=== PATIENT | male | born 1980 | race Caucasian/White ===

== ENCOUNTER → 2016-10-25 | Outpatient (CLI) | payer OTHER ==
[2016-10-25 09:27] LABS: BASO % 0.9 %; BASO ABS # 0.06 K/uL (0-0.2); COMPLETE YES; EOS % 5.4 %; HEMATOCRIT 48.6 % (42-52); IG% 0.1 %; LYMPH % 40.3 %; LYMPH ABS # 2.76 K/uL (1.2-3.4); MEAN CELL VOLUME 92.6 fL (80-100); MEAN CORPUSCULAR HGB CONC 34.6 g/dl (32-36); MEAN PLATELET VOLUME 12.1 fL (7.4-10.4); MONO % 12.8 %; NEUT % 40.5 %; PLATELET COUNT 233 K/uL (130-400); RED BLOOD COUNT 5.25 M/uL (4.7-6.1); WHITE BLOOD COUNT 6.85 K/uL (4.8-10.8)
[2016-10-25 09:37] LABS: ESTIMATED AVERAGE GLUCOSE 120 mg/dl; HA1C FLAG Normal (Normal)
[2016-10-25 09:59] LABS: CALCIUM 9.4 mg/dl (8.5-10.1)
[2016-10-25 10:01] LABS: ALT/SGPT 28 U/L (12-78); BLOOD UREA NITROGEN 13 mg/dl (7-18); BUN/CREATININE RATIO 11.2 (10-20); CARBON DIOXIDE 31 mmol/L (21-32); CHLORIDE 105 mmol/L (98-107); CHOLESTEROL 187 mg/dl (0-200); GLUCOSE 90 mg/dl (70-99); POTASSIUM 4.4 mmol/L (3.5-5.1); SODIUM 141 mmol/L (136-145); TRIGLYCERIDES 106 mg/dl (0-150); VERY LOW DENSITY LIPOPROT CALC 21 mg/dl
[2016-10-25 10:12] LABS: ALB/GLOB RATIO 1.3 (0.9-2); ALKALINE PHOSPHATASE 47 U/L (45-117); AST/SGOT 22 U/L (15-37); CHOLESTEROL/HDL RATIO 3.3; HDL CHOLESTEROL 57 mg/dl; LDL CHOLESTEROL CALCULATED 109 mg/dl
== END | disposition home or self-care (01) ==
LOC: C.LAB 07:47
PROVIDERS: ATTEND Physician Assistant
DX: Z51.81 Encounter for therapeutic drug level monitoring (principal); Z79.899 Other long term (current) drug therapy

== ENCOUNTER 2017-06-21 15:35 | Inpatient (IN) | payer OTHER ==
[~2017-06-21] VITALS: Ht 175.3 cm; Wt 88.0 kg
[2017-06-21] MEDS ORDERED: CITA40TA12 PO (15:59)
[2017-06-21] MEDS ORDERED: CLON0.5T3 PO (15:59)
[2017-06-21] MEDS ORDERED: XYLOCAINE 1%/SOD BICARB 20 ML VIAL INFIL ONE (16:00)
--- NOTE | 2017-06-21 16:45 | DIAGNOSTIC IMAGING REPORT ---
R KNEE 3 VIEWS, L KNEE 3 VIEWS CLINICAL HISTORY: Bilateral knee injuries with pain. COMPARISON STUDY: None. FINDINGS: Subtle nondisplaced lateral tibial plateau fracture within the right knee. Prepatellar soft tissue laceration. Small bilateral joint effusions. Anterior soft tissue gas within the left knee is also likely due to a soft tissue laceration. Old, healed left proximal fibular fracture. No acute fracture or dislocation within the left knee. There is a 1 cm bony fragment within the lateral suprapatellar soft tissues of the right knee with the donor site seen at the lateral femoral condyle. There is an associated nondisplaced fracture within the lateral aspect of the lateral femoral condyle of the right knee. This likely results in the bony fragment. IMPRESSION: 1. Nondisplaced fractures within the lateral femoral condyle and lateral tibial plateau of the right knee. 2. No acute fracture or dislocation within the left knee. 3. Small bilateral joint effusions and anterior soft tissue lacerations. Electronically signed by: Louis Alcazar M.D. 06/21/2017 4:44 PM Dictated Date/Time: 06/21/2017 4:39 PM
[2017-06-21] MEDS ORDERED: LIDOCAINE/EPINEPHRINE 1% 20 ML VIAL ONE (16:46)
[2017-06-21] MEDS ORDERED: SODIUM CHLORIDE 0.9% IRRIG 1,000 ML PLCT IR ONE (17:00)
[2017-06-21] MEDS ORDERED: SODIUM CHLORIDE 0.9% TOP ONE (17:30)
[2017-06-21] MEDS ORDERED: METHYLENE BLUE 0.5% TOP ONE (17:30)
[2017-06-21] MEDS ORDERED: CEFAZOLIN IV 1,000 MG in DEXTROSE 5% 50ML 50 ML IV ONE (18:00)
[2017-06-21] MEDS ORDERED: ONDANSETRON INJ 2 MG/ML 2 ML VIAL IV STA (18:08)
[2017-06-21] MEDS ORDERED: MoRPHine SULFATE 4 MG/ML 1 ML CARP\\VIAL IV STA (18:08)
[2017-06-21] MEDS ORDERED: BACITRACIN 50000 UNIT VIAL ONE ×2 (18:55→19:17)
[2017-06-21] MEDS ORDERED: POVIDONE-IODINE OP SOLN 30 ML BTL ONE (18:55)
--- NOTE | 2017-06-21 18:57 | History and Physical ---
History & Physical Date of Service Jun 21, 2017. 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 He was trying to extricate a 4 yip. This happened about noon. He last ate 6 hours ago but did have a few bites of food on his way to the hospital. It took him an additional 3 hours to extricate the equipment. When he fell in the [place] which was dry he hit his knees on something when she is not sure of. He injured both knees but was able to continue to ambulate and work. He then came to the emergency room. He has a prior history of an anterior cruciate ligament injury in his right knee at age 12 which may have healed but he has not had surgery he denies numbness and tingling. He complains of pain right knee worse than left knee. Tetanus is been within the last few years. He has had 4 alcoholic drinks today. He also has a police monitor on his left ankle. Past medical history significant for anxiety. Past surgical history he had left circumflex shoulder surgery. Medications Celexa and Klonopin Allergies none review of systems he denies bleeding blood clots infections metal sensitivity heart lung liver kidney disease heart attack stroke or diabetes Examination chest clear to auscultation bilaterally heart is regular in rate and rhythm Abdomen is soft and nontender with active bowel sounds. The patient denies of pain in the neck or back chest or arms or pelvis. Examination the left lower extremity reveals full extension and full flexion he has a trace effusion there are 2 abrasions over the anterior aspect of the knee and a 2 cm complex laceration which is previously been closed overlying the inferior portion of the patella. There is no pain with logrolling his cruciates and collaterals are intact there is some minor tenderness around the abrasions otherwise unremarkable. He has 5 out of 5 knee flexion and extension strength and 5 out of 5 ankle and toe plantarflexion and dorsiflexion strength. Sensation is intact in both lower extremities and he has 1 posterior cells pedis and posterior tibial pulses. There is a police locater device on his left ankle. Examination of the right knee reveals range of motion 0-30. He is able to do a straight leg raise. Logrolling is negative. There is some mild tenderness in the distal 5 but significant tenderness around the lateral side of the knee and the medial femur. The tibia ankle and foot are nontender. He does not have significant effusion. There is a curvilinear transverse 6 cm laceration just above the patella oozing blood with exposed muscle and the laceration appears to be significantly deep. Lockman appears slightly lax but cannot tell due to relaxation. Cannot assess posterior drawer. The patella appears to be nontender and the patella appears of normal height and there is no pathological laxity to LCL or MCL stressing. Radiographs of the left knee are negative except for some subcutaneous air not in the joint. Radiographs of the right knee show a nondisplaced lateral epicondylar fracture nondisplaced lateral tibial plateau fracture possibly an avulsion of the lateral tibial spine a bone fragment in the lateral soft tissues and soft tissue disruption in the supra patellar region. Impression is left leg laceration right knee laceration with minor fractures of the tibia and femur avulsion fracture possible open joint possible quadriceps tendon laceration. Findings discussed with the patient. I recommend exploration irrigation debridement repair of the quadriceps tendon is lacerated washing out of the knee joint. I don't think the fractures are of any significance. He walked around on them for 3 hours and was up walking around to the bathroom upon my arrival to the emergency room. An informed consent is obtained. He is to be nothing by mouth. His tetanus is up-to-date. Straight Ancef and gentamicin. The plan will be for operative intervention. I do not think that his fractures require any operative fixation other than nonweightbearing. I advised advised him that there are things that could be injured in his knee that we are not be able to take care of at this time for example complete PCL tear which I cannot diagnose at this time. I do not think that he needs an MRI nor CT scan at this point. A compressive dressings applied with a Betadine dressing. CBC and PRP ordered.
[2017-06-21 19:00] VITALS: O2SAT 98
[2017-06-21] MEDS ORDERED: FENTANYL CITRATE INJ 50 MCG/1 ML 2 ML VIAL ONE ×2 (19:25→20:38)
[2017-06-21] MEDS ORDERED: MIDAZOLAM HCL 1 MG/ML 2ML VIAL ONE (19:25)
[2017-06-21 19:26] LABS: BASO % 0.1 %; BASO ABS # 0.01 K/uL (0-0.2); COMPLETE YES; HEMATOCRIT 38.7 % (42-52); IG% 0.3 %; LYMPH % 10.4 %; LYMPH ABS # 1.55 K/uL (1.2-3.4); MEAN CELL VOLUME 89.6 fL (80-100); MEAN CORPUSCULAR HEMOGLOBIN 31.5 pg (25-34); MEAN CORPUSCULAR HGB CONC 35.1 g/dl (32-36); MEAN PLATELET VOLUME 11.5 fL (7.4-10.4); MONO % 9.2 %; PLATELET COUNT 223 K/uL (130-400); RED BLOOD COUNT 4.32 M/uL (4.7-6.1); WHITE BLOOD COUNT 14.97 K/uL (4.8-10.8)
[2017-06-21] MEDS ORDERED: GENTAMICIN INJ 80 MG in DEXTROSE 5% 100ML 100 ML IV SCH (19:30)
[2017-06-21 19:37] LABS: BLOOD UREA NITROGEN 9 mg/dl (7-18); BUN/CREATININE RATIO 7.7 (10-20); C-REACTIVE PROTEIN < 0.29 mg/dl (0-0.29); CALCIUM 8.1 mg/dl (8.5-10.1); CARBON DIOXIDE 25 mmol/L (21-32); CHLORIDE 98 mmol/L (98-107); CREATININE 1.17 mg/dl (0.60-1.40); GLUCOSE 104 mg/dl (70-99); POTASSIUM 3.7 mmol/L (3.5-5.1); SODIUM 131 mmol/L (136-145)
[2017-06-21] MEDS ORDERED: SUCCINYLCHOLINE CHLORIDE 20 MG/ML 10 ML VIAL IV ONE (19:49)
[2017-06-21] MEDS ORDERED: PROPOFOL IV EMULSION 10 MG/ML 20 ML VIAL IV ONE (19:49)
[2017-06-21] MEDS ORDERED: CEFAZOLIN SOD IV ONE (19:56)
[2017-06-21] MEDS ORDERED: CEFAZOLIN SOD 1 GM VIAL ONE (20:38)
[2017-06-21] MEDS ORDERED: DEXAMETHASONE SOD INJ 4 MG/ML VIAL ONE (20:41)
[2017-06-21] MEDS ORDERED: ONDANSETRON INJ 2 MG/ML 2 ML VIAL ONE (20:41)
[2017-06-21] MEDS ORDERED: NEOSTIGMINE METHYLSULFATE 5 MG/5 ML SYR ONE (21:03)
[2017-06-21] MEDS ORDERED: GLYCOPYRROLATE INJ 0.2 MG/ML VIAL ONE (21:03)
--- NOTE | 2017-06-21 21:10 | [facility] Post Operative Brief Note ---
Immediate Operative Summary Operative Date Jun 21, 2017. Pre-Operative Diagnosis tramatic right knee wound Post-Operative Diagnosis Right lateral Condyl Fracture, Open knee Joint, Disruption of Quadriceps Tendon Procedure(s) Performed Irrigation and Debridement, Exploration of Right Knee, Repair of Extensor Mechanism Surgeon Dr. Diallo Musa Railroad Car Checker Surgeon(s) None Estimated Blood Loss 20 ml Findings impacted fracture lateral condyle, open knee joint, longitudinal split in quad tendon Specimens None Drains 2 Anesthesia General Complication(s) None Disposition Recovery Room / PACU
[2017-06-21] MEDS ORDERED: METOCLOPRAMIDE HCL INJ 5 MG/ML 2 ML VIAL IV PRN (21:15)
[2017-06-21] MEDS ORDERED: MoRPHine SULFATE 2 MG/ML CARP IV PRN (21:15)
[2017-06-21] MEDS ORDERED: ONDANSETRON INJ 2 MG/ML 2 ML VIAL IV PRN ×2 (21:15→21:45)
[2017-06-21] MEDS ORDERED: ALUMINUM/MAGNESIUM/SIMETH (MAALOX MAX) 30 ML UDC PO PRN (21:15)
[2017-06-21] MEDS ORDERED: HYDROmorphone INJ 1 MG/ML SYR IV PRN (21:45)
[2017-06-21] MEDS ORDERED: EpHEDrine SULFATE INJ 50 MG/ML AMP IV PRN (21:45)
[2017-06-21] MEDS ORDERED: ATROPINE SULFATE 0.1 MG/ML 5ML SYR IV PRN (21:45)
[2017-06-21] MEDS ORDERED: FLUMAZENIL 0.1 MG/1 ML 10 ML VIAL IV PRN (21:45)
[2017-06-21] MEDS ORDERED: LABETALOL HCL IV 5 MG/ML 20ML IV PRN (21:45)
[2017-06-21] MEDS ORDERED: NALOXONE HCL 0.4 MG/1 ML VIAL/CARP IV PRN (21:45)
[2017-06-21] MEDS ORDERED: PROMETHAZINE HCL INJ 12.5 MG in SODIUM CHLORIDE 0.9% 50ML 50 ML IV PRN (21:45)
--- NOTE | 2017-06-21 21:50 | Anesthesiology Progress Note ---
Anesthesia Post Op Note Date & Time Jun 21, 2017 at 21:50 Vital Signs Pain Intensity: 6 Vital Signs Past 12 Hours Date Time Temp Pulse Resp B/P (MAP) Pulse Ox O2 Delivery O2 Flow Rate FiO2 06/21/17 21:35 65 16 134/77 100 Nasal Cannula 2 06/21/17 21:25 36.8 79 16 162/88 95 Nasal Cannula 2 06/21/17 19:00 75 16 103/76 98 06/21/17 17:47 62 18 113/62 98 Room Air 06/21/17 15:36 36.4 65 18 110/80 98 Room Air Notes Mental Status: alert / awake / arousable, participated in evaluation Pt Amnestic to Procedure: Yes Nausea / Vomiting: adequately controlled Pain: adequately controlled Airway Patency, RR, SpO2: stable & adequate BP & HR: stable & adequate Hydration State: stable & adequate Anesthetic Complications: no major complications apparent
[2017-06-21] MEDS ORDERED: HYDROmorphone INJ 1 MG/ML SYR ONE (21:53)
[2017-06-21 22:40] VITALS: BP 143/87; PULSE 64; TEMP 37; O2SAT 94
[2017-06-21 22:45] VITALS: Ht 175.3 cm; Wt 88.0 kg
--- NOTE | 2017-06-21 23:05 | OPERATIVE REPORT ---
DATE OF OPERATION: 06/21/2017 PREOPERATIVE DIAGNOSIS: Right knee wound, suspected open joint, nondisplaced tibial plateau fracture, nondisplaced lateral femoral condyle fracture. POSTOPERATIVE DIAGNOSIS: Same plus open knee joint with longitudinal disruption of quadriceps tendon. PROCEDURE: Exploration, irrigation and debridement, repair of extensor mechanism. SURGEON: Diallo Musa MD. CONCRETE TECHNICIAN: None. ANESTHESIA: General. 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 He apparently fell out of the backhoe and injured both of his knees by striking them against the ground. He was seen and evaluated in the Emergency Room, he had several fracture fragments in the soft tissues. The location and size of the wound suggested the possibility for an open injury. He did have a nondisplaced lateral condyle fracture and a nondisplaced lateral tibial plateau fracture, neither of which appeared to be in need of surgical treatment. PROCEDURE IN DETAIL: His tetanus is up to date. He received a dose of antibiotics in the ER. Informed consent was obtained. A preoperative surgical timeout was performed. A preop dose of IV antibiotics was given. He received both Ancef and gentamicin due to the nature of his injury. A preoperative surgical timeout was performed. The patient was identified as Neeraj March. He identified the operative site as the right knee which I marked with my initials. He was positioned supine on the OR table with a tourniquet on the right thigh. After the anesthetic was administered, examination under anesthesia was performed. He had trace LCL laxity with firm endpoint, trace ACL laxity with firm endpoint and perhaps a trace bit of PCL laxity. MCL was intact. He had a 6 cm L-shaped laceration over the superior lateral aspect of the knee, just above the patella. His range of motion passively was easily to about 120 degrees. The limb was prepped and draped in usual sterile fashion. DVT prophylaxis will be done with early patient mobility, aspirin and mechanical devices. The limb was exsanguinated with gravity and tourniquet inflated to 250 mmHg. The incision was opened superiorly in the midline and inferiorly along its lateral aspect. Electrocautery was utilized down to subcutaneous tissues. Immediately, it became evident that the wound went down through the quadriceps tendon and into the knee joint. There was a longitudinal split in the lateral portion of the quadriceps tendon going up into the vastus lateralis. about the lateral quarter to fifth of the tendon with vast majority intact medially. There were some debris and bone fragments that were present, these were removed as encountered throughout the procedure. I made an arthrotomy going along the lateral border of the patella to about its midpoint. I then was able to identify some palpable fracture fragments in the lateral condyle area. These fracture fragments were removed, multiple small pieces of bone and cartilage were removed. There was a defect on the superior lateral aspect of the lateral femoral condyle, some avulsion, a good bit impaction, all of fragments were small pieces that were not amenable to fixation and were not structurally important. This was 2 cm long x 1.5 cm wide. It probably involved the most lateral portion of the patellofemoral articulation. I carefully palpated and removed any loose bone fragments as possible. I did not encounter any significant debris within the knee. I palpated the patella which felt normal as did the trochlea, medial condyle, and medial and lateral gutters. Three liters of pulse lavage was done inside the knee and the soft tissues. The bursal area was largely somewhat degloved from the underlying tissue. There was a lot of hemorrhagic bursitis that was excised. I then irrigated with 500 mL of Betadine lavage within the knee joint and wound, allowed it to soak for several minutes and then rinsed it out. Two drains were inserted, one exiting out the lateral gutter within the knee joint, suprapatellar pouch, and medial and lateral gutter, the other one was placed superficially exiting out medially and was placed into the bursal area. The split in the quadriceps tendon was repaired with #2 FiberWire in an interrupted fashion. I then oversewed this with a running #1 Vicryl. The part of the split that went up into the quadriceps muscle vastus lateralis was repaired with interrupted #1 Vicryl. Skin for my surgical incisions was closed with 2-0 Vicryl and tyson, and for the traumatic laceration, was closed with approximately four 2-0 nylon sutures. The tourniquet was let down prior to wound closure and there was no significant bleeding, tourniquet time was approximately 45 minutes. Xeroform, 4 x 4's, ABD, an Valentino wrap with knee immobilizer were applied. The patient was then awakened from anesthesia and taken to the recovery room in stable condition. There were no specimens or complications. Counts were correct at the end of the case. Blood loss was perhaps 10 mL. No one was available to speak to at the conclusion of the operation. The plan will be for administration of intravenous antibiotics for a period of 24-48 hours. We will use Ancef and gentamicin due to the nature of this injury. Additionally, he will be made nonweightbearing because of his tibial plateau fracture and for now we will hold on range of motion while the drains are in place. Drains will likely be pulled in 24-36 hours and will commence range of motion but continue nonweightbearing. I attest to the content of the Intraoperative Record and any orders documented therein. Any exceptions are noted below. MTDD
[2017-06-21 23:10] VITALS: BP 120/71; PULSE 64; TEMP 37.1; O2SAT 94
[2017-06-21] MEDS ORDERED: MoRPHine SULFATE 10 MG/ML CARP/VIAL IV PRN (23:15)
[2017-06-21] MEDS ORDERED: GENTAMICIN INJ 500 MG in DEXTROSE 5% 100ML 100 ML IV SCH (23:15)
[2017-06-21] MEDS ORDERED: GENTAMICIN CONSULT ACTIVE PRN (23:30)
[2017-06-21 23:40] VITALS: BP 131/69; PULSE 63; TEMP 37.1; O2SAT 92
[2017-06-21] MEDS ORDERED: INFLUENZA VIRUS QUAD VACCINE 0.5 ML SYR IM. ONE (23:45)
[2017-06-21] MEDS ORDERED: INFLUENZA ADMINISTRATION CHARGE ONE (23:45)
[2017-06-21] MEDS: D5W AND 1/2NSS + 20MEQ KCL 1,000 ML IV SCH (23:54)
[2017-06-21] MEDS: OXYCODONE HCL IR 5 MG TAB (IMMEDIATE RELEASE) PO PRN (23:55)
[2017-06-21] MEDS: ACETAMINOPHEN 500 MG TAB PO SCH (23:55)
[2017-06-21] MEDS: KETOROLAC TROMETHAMINE 30 MG/ML VIAL IV PRN (23:56)
[2017-06-22] VITALS (7 sets, daily range): BP systolic 101–119; BP diastolic 57–72; PULSE 51–71; TEMP 36.8–37.4; O2SAT 93–97
[2017-06-22] MEDS: OXYCODONE HCL IR 5 MG TAB (IMMEDIATE RELEASE) PO PRN ×3 (04:07→23:55)
[2017-06-22] MEDS: CEFAZOLIN IV 2,000 MG in SYRINGE 0 ML IV SCH ×3 (04:07→20:30)
--- NOTE | 2017-06-22 05:47 | Pharmacy Progress Note ---
Pharmacy Abx Initial Consult Date of Service Jun 22, 2017. Pharmacy Dosing Scope Date of Consult: 06/21/17 Consultation requested by: Dr. Musa Pharmacy is consulted to continue Gentamicin IV dosing therapy, order appropriate labs and adjust drug dose/frequency. Subjective The patient is a 36 year old male admitted on Jun 21, 2017 at 21:26 with a knee injury from a fall in a osage bottom while working outdoors. Dr Musa took him to OR for fixation with possible ligament involvement and open fracture possibilities. He consulted us to continue Gentamicin post surgery. Objective Height (Feet): 5 Height (Inches): 9.00 Weight (Kilograms): 88.000 Vital Signs (Past 12Hrs) Vital Signs Past 12 Hours Date Time Temp Pulse Resp B/P (MAP) Pulse Ox O2 Delivery O2 Flow Rate FiO2 06/22/17 03:26 36.8 61 16 111/67 (82) 97 Room Air 06/22/17 01:40 37.0 64 16 117/68 (84) 93 Room Air 06/22/17 00:40 37.2 66 16 118/69 (85) 93 Room Air 06/22/17 00:00 Room Air 06/21/17 23:40 37.1 63 16 131/69 (89) 92 Room Air 06/21/17 23:10 37.1 64 18 120/71 (87) 94 Room Air 06/21/17 22:45 Nasal Cannula 06/21/17 22:40 37.0 64 16 143/87 (105) 94 Room Air Nasal Cannula 06/21/17 22:40 Nasal Cannula 06/21/17 22:30 62 16 129/81 100 Nasal Cannula 2 06/21/17 22:15 62 16 134/75 100 Nasal Cannula 2 06/21/17 22:05 36.9 61 15 135/79 100 Nasal Cannula 2 06/21/17 21:55 64 15 144/76 100 Nasal Cannula 2 06/21/17 21:45 66 16 140/81 100 Nasal Cannula 2 06/21/17 21:35 65 16 134/77 100 Nasal Cannula 2 06/21/17 21:25 36.8 79 16 162/88 95 Nasal Cannula 2 06/21/17 19:00 75 16 103/76 98 06/21/17 17:47 62 18 113/62 98 Room Air Lab Results (24Hrs) Laboratory Tests (24 Hours) Test 06/21/17 18:43 C-Reactive Protein < 0.29 mg/dl (0-0.29) White Blood Count 14.97 K/uL (4.8-10.8) H Red Blood Count 4.32 M/uL (4.7-6.1) L Hemoglobin 13.6 g/dL (14.0-18.0) L Hematocrit 38.7 % (42-52) L Mean Corpuscular Volume 89.6 fL (80-100) Mean Corpuscular Hemoglobin 31.5 pg (25-34) Mean Corpuscular Hemoglobin Concent 35.1 g/dl (32-36) Platelet Count 223 K/uL (130-400) Mean Platelet Volume 11.5 fL (7.4-10.4) H Neutrophils (%) (Auto) 80.0 % Lymphocytes (%) (Auto) 10.4 % Monocytes (%) (Auto) 9.2 % Eosinophils (%) (Auto) 0.0 % Basophils (%) (Auto) 0.1 % Neutrophils # (Auto) 11.99 K/uL (1.4-6.5) H Lymphocytes # (Auto) 1.55 K/uL (1.2-3.4) Monocytes # (Auto) 1.38 K/uL (0.11-0.59) H Eosinophils # (Auto) 0.00 K/uL (0-0.5) Basophils # (Auto) 0.01 K/uL (0-0.2) Assessment & Plan Assessment 36 year old male with knee injury requiring surgery and post op antibiotics consisting of Ancef and Gentamicin Plan Gentamicin for treatment of open fracture of knee Gentamicin * Patient meets criteria for extended-interval aminoglycoside dosing per the [place] nomogram * Dose: 500mg x 1 then 540mg (7 mg/kg) IV every 24 hours due to preop dosage 4&1/2 hours prior, I chose 6.5mg/kg initial dose. * Dosage based on adjusted body weight for patients weighing > 120% of ideal body weight. (77kg) * Random level ordered for 8 hours after the start of the infusion to ensure dosing interval is appropriate. 0800 on 06/22/17 * Will extrapolate random level to the extended-interval aminoglycoside dosing nomogram to confirm q24h dosing upon assessment of level. Pharmacy will continue to follow and will adjust dose/frequency as necessary. Thank you.
[2017-06-22] MEDS: KETOROLAC TROMETHAMINE 30 MG/ML VIAL IV PRN ×2 (06:05→14:34)
[2017-06-22] MEDS: ACETAMINOPHEN 500 MG TAB PO SCH ×3 (06:05→22:45)
[2017-06-22 08:58] LABS: CREATININE 1.04 mg/dl (0.60-1.40)
[2017-06-22] MEDS: CITALOPRAM 40 MG TAB PO SCH (09:05)
[2017-06-22] MEDS: CLONAZEPAM 0.5 MG TAB PO SCH ×3 (09:05→20:30)
[2017-06-22] MEDS: DOCUSATE SODIUM 100 MG CAP PO SCH ×2 (09:05→20:30)
[2017-06-22] MEDS: D5W AND 1/2NSS + 20MEQ KCL 1,000 ML IV SCH ×2 (09:06→19:05)
[2017-06-22] MEDS: ASPIRIN 325 MG ECTAB PO SCH ×2 (09:06→20:30)
--- NOTE | 2017-06-22 09:27 | Pharmacy Progress Note ---
Pharmacy Abx Dose Short Note Date of Service Jun 22, 2017. Assessment & Plan Assessment 36 year old male receiving Gentamicin 540mg (7mg/kg) for treatment of open knee wound Day # 2 of antimicrobial therapy. Plan Pt is receiving Gentamicin 540mg Q24H. Renal fxn looks good. Scr=1.04, [id number]/min. Gentamicin lvl of 2.50 falls under the therapeutic window for Q24H dosing. Lvl was drawn ~8 hours after start of infusion. Will continue current dose and regimen for now. No subsequent lvl ordered as of now. Pharmacy will order random lvl in a few days. Pharmacy will continue to follow and will adjust dose/frequency as necessary. Thank you.
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
--- NOTE | 2017-06-22 14:55 | Discharge Instructions ---
Discharge Instructions Date of Service Jun 22, 2017. Admission Reason for Admission: Open Wound Knee/Leg With Tendon Involvment Discharge Discharge Diagnosis / Problem: open fracture right knee, quad tendon tear Discharge Goals Goal(s): Decrease discomfort, Improve function, Increase independence Activity Recommendations Activity Limitations: per Instructions/Follow-up section Weightbearing Status: Right non-weightbearing (use crutches to assist with ambulation) . Instructions / Follow-Up Instructions / Follow-Up DIET: * Resume previous diet. MEDICATIONS: * Please take your prescriptions as instructed at your pre-op appointment and/ or see medication discharge instructions listed above. * Take pain medication as prescribed. * Take antibiotics as prescribed, take until gone. * If concerns develop, call your physician's office at . SPECIAL CARE INSTRUCTIONS: * Ice to right knee as needed for pain/swelling. * Keep dressing clean, dry, intact. Keep dressings on until your follow up visit * Use knee immobilizer when out of bed/with walking. Use crutches to assist with ambulation at all times. * You may remove knee immobilizer to do gentle range of motion to right knee, quad exercises. Work on straightening and lifting your right leg. * DO NOT PLACE ANY WEIGHT ON YOUR RIGHT LEG. USE CRUTCHES TO ASSIST WITH AMBULATION. * Your surgical extremity may be discolored due to prepping agents used on the skin. A bluish-green tint is a normal variant and should not cause alarm. Call your doctor at [phone] if: * Temperature above 101 degrees * Pain not relieved by pain medicine ordered * There is increased drainage or redness from any incision * You have any unanswered questions, problems or concerns. FOLLOW UP VISIT: * If not already scheduled, please call the office at to schedule a follow-up appointment. * You have a follow up scheduled on 06/27/17 at 3:15 p.m. at [facility]. Please call with any questions or concerns. Current Hospital Diet Patient's current hospital diet: Regular Diet Discharge Diet Recommended Diet: Regular Diet Procedures Procedures Performed: Irrigation and Debridement, Exploration of Right Knee, Repair of Extensor Mechanism Pending Studies Studies pending at discharge: no Medical Emergencies . Who to Call and When: Medical Emergencies: If at any time you feel your situation is an emergency, please call 911 immediately. . Non-Emergent Contact Non-Emergency issues call your: Surgeon Call Non-Emergent contact if: temperature is above 101, your pain is not controlled, your pain is worsening, wound has increased drainage, wound has increased redness, wound has increased pain, you have any medication questions . "Provider Documentation" section prepared by Kymberly Farr. . VTE Core Measure Inpt VTE Proph given/why not?: Other Anticoagulation (Aspirin 325mg po BID x 28 days) [place] Drug Monitoring Program Search Results: patient reviewed within database, no issues identified
[2017-06-22] MEDS ORDERED: OXYC-57 PO (14:57)
[2017-06-22] MEDS ORDERED: AMOX875T PO (14:57)
[2017-06-22] MEDS ORDERED: ASPI325T45 PO (14:58)
--- NOTE | 2017-06-22 15:08 | PROGRESS NOTE ---
DATE: 06/22/2017 DATE: 06/22/2017 SUBJECTIVE: Pain well controlled. No problems reported. Afebrile, vital signs stable. Drainage is 100 mL the past 2 shifts. Distal neurovascular function intact, 5/5 ankle and toe plantar flexion and dorsiflexion strength, normal sensation and 1+ posterior tib pulse. IMPRESSION: Nondisplaced lateral tibial plateau fracture, impacted comminuted fracture of the lateral femoral condyle, open knee joint with longitudinal disruption of the quadriceps tendon right knee. PLAN: Findings were discussed. Will continue the drains, nonweightbearing, no range of motion. Continue antibiotics. I will follow up with him tomorrow. If drainage is diminished we will pull the drains, initiate range of motion and continue nonweightbearing. He is educated about the surgical findings. We reviewed the plan for his future care. Aspirin for DVT prophylaxis.
[2017-06-22] MEDS ORDERED: SENNA 8.6 MG TAB PO SCH (21:00)
[2017-06-22] MEDS ORDERED: GENTAMICIN IV SCH (23:00)
[2017-06-22] MEDS ORDERED: DEXTROSE 5% IV SCH (23:00)
[2017-06-23] MEDS: CEFAZOLIN IV 2,000 MG in SYRINGE 0 ML IV SCH ×2 (03:31→12:40)
[2017-06-23] MEDS: KETOROLAC TROMETHAMINE 30 MG/ML VIAL IV PRN (03:35)
[2017-06-23] MEDS: D5W AND 1/2NSS + 20MEQ KCL 1,000 ML IV SCH (05:31)
[2017-06-23] MEDS: ACETAMINOPHEN 500 MG TAB PO SCH (05:31)
[2017-06-23 06:42] LABS: CREATININE 1.06 mg/dl (0.60-1.40)
[2017-06-23 08:05] VITALS: BP 93/60; PULSE 57; TEMP 36.5; O2SAT 97
[2017-06-23] MEDS: OXYCODONE HCL IR 5 MG TAB (IMMEDIATE RELEASE) PO PRN ×2 (08:24→12:50)
[2017-06-23] MEDS: CITALOPRAM 40 MG TAB PO SCH (08:30)
[2017-06-23] MEDS: DOCUSATE SODIUM 100 MG CAP PO SCH (08:30)
[2017-06-23] MEDS: ASPIRIN 325 MG ECTAB PO SCH (08:30)
[2017-06-23] MEDS: CLONAZEPAM 0.5 MG TAB PO SCH ×2 (08:30→13:52)
--- NOTE | 2017-06-23 11:41 | PROGRESS NOTE ---
DATE: 06/23/2017 SUBJECTIVE: He is resting comfortably in bed. No problems are noted. OBJECTIVE: He is afebrile. His vital signs are stable. His drainage output was only 25 mL. He has intact distal neurovascular function, normal sensation. 5/5 ankle and toe plantar flexion and dorsiflexion strength. He can do a straight leg raise. 1+ posterior tib pulse. There is no significant fluid within the bursa. He may have a small knee joint effusion. There is no significant erythema. The wounds are healing well. Drains were pulled and a new dressing is applied. IMPRESSION: Traumatic open wound of the right knee status post fall resulting in a nondisplaced tibial plateau fracture, impacted fracture of the lateral femoral condyle and a longitudinal tear of the quadriceps tendon and an open joint of the right knee. PLAN: He is suitable for discharge. He will follow up with me next week. I reviewed with him his discharge instructions. He will be discharged on an oral antibiotic, pain medication and aspirin. He can do a quad sets, leg raises, knee bending, ankle pumps and is to be nonweightbearing with crutches.
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
[2017-06-23 13:35] VITALS: BP 93/60; PULSE 57; TEMP 36.5; O2SAT 97
== END 2017-06-23 13:55 | disposition home or self-care (01) | DRG 500 ==
LOC: C.EDB 15:36 → C.MSW 21:26 → ENRESERV 21:52
PROVIDERS: ADMIT Physical Medicine & Rehabilitation Sports Medicine; ATTEND Physical Medicine & Rehabilitation Sports Medicine
PROC: 0JCN0ZZ Extirpation of Matter from Right Lower Leg Subcutaneous Tissue and Fascia, Open Approach (ICD-10-PCS; principal; 2017-06-21 18:34)
PROC: 0MBN0ZZ Excision of Right Knee Bursa and Ligament, Open Approach (ICD-10-PCS; principal; 2017-06-21 18:34)
PROC: 0LQQ0ZZ Repair Right Knee Tendon, Open Approach (ICD-10-PCS; principal; 2017-06-21 18:34)
PROC: 3E1U38Z Irrigation of Joints using Irrigating Substance, Percutaneous Approach (ICD-10-PCS; principal; 2017-06-21 18:34)
PROC: 0HQLXZZ Repair Left Lower Leg Skin, External Approach (ICD-10-PCS; 2017-06-21 18:34)
PROC: 0HQ1XZZ Repair Face Skin, External Approach (ICD-10-PCS; 2017-06-21 18:34)
DX: S72.424 Nondisplaced fracture of lateral condyle of right femur (principal); S82.144 Nondisplaced bicondylar fracture of right tibia; M71.561 Other bursitis, not elsewhere classified, right knee; S81.012A Laceration without foreign body, left knee, initial encounter; S01.112A Laceration without foreign body of left eyelid and periocular area, initial encounter; F41.9 Anxiety disorder, unspecified; F17.200 Nicotine dependence, unspecified, uncomplicated; Z79.899 Other long term (current) drug therapy; V85.5XXA Driver of special construction vehicle injured in nontraffic accident, initial encounter; Y99.8 Other external cause status

== ENCOUNTER → 2017-07-03 | Outpatient (CLI) | payer OTHER ==
[~2017-07-03] MED LIST: AMOX875T PO; ASPECOTC PO; CITA40TA12 PO; KLN/5 PO; OXYC-57 PO
== END | disposition home or self-care (01) ==
LOC: C.RDSM 12:30
PROVIDERS: ATTEND Physical Medicine & Rehabilitation Sports Medicine
DX: S72.424A Nondisplaced fracture of lateral condyle of right femur, initial encounter for closed fracture (principal); X58.XXXA Exposure to other specified factors, initial encounter

== ENCOUNTER → 2017-07-18 | Outpatient (CLI) | payer OTHER ==
[~2017-07-18] MED LIST changes: -AMOX875T PO; -ASPECOTC PO; +ASPI325T45 PO; +CLON0.5T3 PO; -KLN/5 PO
== END | disposition home or self-care (01) ==
LOC: C.RDSM 13:12
PROVIDERS: ATTEND Physical Medicine & Rehabilitation Sports Medicine
DX: S81.001A Unspecified open wound, right knee, initial encounter (principal); S72.42 Fracture of lateral condyle of femur; X58.XXXA Exposure to other specified factors, initial encounter

== ENCOUNTER → 2017-08-07 | Outpatient (CLI) | payer OTHER | END | disposition home or self-care (01) | LOC: C.RDSM 13:28 | PROVIDERS: ATTEND Physical Medicine & Rehabilitation Sports Medicine | DX: S72.41 Unspecified condyle fracture of lower end of femur (principal); X58.XXXD Exposure to other specified factors, subsequent encounter ==